=== PATIENT | male | born 1995 | race Caucasian/White ===

== ENCOUNTER 2016-10-29 08:50 | Day surgery (SDC) | payer BC ==
[~2016-10-29 08:50] MED LIST: ACETAMINOPHEN 500 MG TABLET PO PRN; HYDROmorphone HCL 2 MG/ML VIAL IV PRN; MAG HYDROX/ALUMINUM HYD/SIMETH 30 ML UDC PO PRN; MAGNESIUM HYDROXIDE 30 ML UDC PO PRN; ONDANSETRON HCL/PF 2 MG/ML VIAL IV PRN; PROMETHAZINE HCL 25 MG in DEXTROSE 5 % IN WATER 50 ML IV PRN; RINGERS SOLUTION,LACTATED 1,000 ML IV PRN; ZOLPIDEM TARTRATE 5 MG TABLET PO PRN; ceFAZolin SODIUM 1 GM VIAL IV PRN; oxyCODONE HCL/ACETAMINOPHEN 1 TAB TABLET PO PRN
--- OUTSIDE RECORDS SUMMARY | 2016-10-29 08:53 | XMS REPORT | Continuity of Care Document ---
:1995 Author Organization [facility] ([facility]) Address [address] [place] [address] Phone [phone] Care Team Providers Name Role Phone Kg Hester Primary Care Provider [phone] Source Comments This disclosure is being made pursuant to the Care Everywhere program, applicable federal and state laws, and may not contain all informaitonavailable regarding this patient.[facility] ([facility]) Active Allergies and Adverse Reactions Allergen Noted Date Severity Reactions Comments Methylprednisolone 04/24/2014 OTHER Severe muscle aches Current Medications Prescription Sig. Disp. Refills Start Date End Date Status ibuprofen 200 mg tablet Take 400 mg by mouth Active every 6 hours as needed. Active Problems Problem Noted Date Tear of right glenoid labrum 06/17/2015 Most Recent Encounters Date Type Specialty Providers Description 10/27/2016 Telephone Orthopedics Lulu Vyas MD Chief Comp: Shoulder Pain Social History Tobacco Use Types Packs/Day Years Used Date Never Smoker Smokeless Tobacco: Never Used Alcohol Use Drinks/Week oz/Week Comments No Last Filed Vital Signs Vital Sign Reading Time Taken Blood Pressure 139/71 07/20/2016 12:48 PM CDT Pulse 54 07/20/2016 12:48 PM CDT Temperature 36.5 C (97.7 F) 07/20/2016 12:48 PM CDT Respiratory Rate 20 07/20/2016 12:48 PM CDT Height 1.778 m (5' 10") 07/20/2016 12:48 PM CDT Weight 111.75 kg (246 lb 5.8 oz) 07/20/2016 12:48 PM CDT Body Mass Index 35.35 07/20/2016 12:48 PM CDT Oxygen Saturation 96% 11/29/2014 1:57 PM CDT Plan of Care Health Maintenance Due Date Last Done Comments Hepatitis B Vaccine (1 of 3 - Primary Series) 1995 HPV Vaccine (1 of 3 - Male 3 Dose Series) 2004 Tdap Vaccine 2004 MMR Vaccine 12/19/2011 Td Vaccine 12/19/2011 Varicella Vaccine (1 of 2 - Adult - No Evidence of 12/19/2011 Immunity) Influenza Vaccine: Seasonal (#1) 04/19/2016 Lipid Disorder Screening 07/20/2021 07/20/2016 Results from Last 3 Months Not on file
--- OUTSIDE RECORDS SUMMARY | 2016-10-29 08:53 | XMS REPORT | CCD ---
:1995 Author Name DIONISIO CROWE Address [address] [facility] Unavailable [place], [place] [phone] Care Team Providers Name Role Phone MIMI COULTER Attending Physician Unavailable Vital Signs Unknown or Not Available. Allergies Unknown or Not Available. Procedures Unknown or Not Available. History of Immunizations Unknown or Not Available. Problems Unknown or Not Available. Results COMPREHENSIVE METABOLIC PANEL - Collect Date/Time: 04/13/2016 16:08 Test Name Code Test Result Test Units Test Ref Range GLUCOSE 86 mg/dL L=74 H=106 SODIUM 141 mmol/L L=136 H=145 POTASSIUM 4.8 mmol/L L=3.5 H=5.1 CHLORIDE 103 mmol/L L=98 H=107 CO2 27 mmol/L L=21 H=32 BUN 10.0 mg/dL L=7.0 H=18.0 CREATININE 1.0 mg/dL L=0.8 H=1.3 BUN/CREAT 10.0 L=7.6 H=21.2 CALCIUM 9.1 mg/dL L=8.6 H=10.1 TOTAL BILI 2.4 mg/dL L=0.2 H=1.0 TOTAL PROTEIN 7.2 g/dL L=6.4 H=8.2 ALBUMIN 4.2 g/dL L=3.4 H=5.0 A/G RATIO 1.4 ALKALINE PHOS 67 IU/L L=50 H=136 AST/SGOT 33 IU/L L=15 H=37 ALT/SGPT 66 IU/L L=12 H=78 ANION GAP 15.8 mmol/L L=7.0 H=16.0 AGE 20 YEARS GFR 99.31 ml/min CPK, TOTAL - Collect Date/Time: 04/13/2016 16:08 Test Name Code Test Result Test Units Test Ref Range CPK 268 U/L L=39 H=308 CBC W/DIFF - Collect Date/Time: 04/13/2016 16:08 Test Name Code Test Result Test Units Test Ref Range WBC 6690-2 11.7 K/uL L=3.2 H=10.0 RBC 789-8 5.99 M/uL L=4.30 H=5.70 HEMOGLOBIN 718-7 17.5 g/dL L=13.6 H=17.1 HEMATOCRIT 49.0 % L=40.0 H=52.0 MCV 81.8 fL L=81.0 H=101 MCH 29.2 PG L=26.0 H=38.0 MCHC 35.7 G/DL L=31.0 H=37.0 RDW-SD 37.6 FL L=37.0 H=54.0 RDW-CV 12.7 % L=11.0 H=16.0 PLATELETS 777-3 168 K/UL L=140 H=380 MPV 12.3 FL L=9.0 H=13.0 %GRAN 60.7 % L=0.0 H=75.0 %LYMPH 23.3 % L=0.0 H=50.0 %MONO 14.4 % L=0.0 H=14.0 %EOS 1.4 % L=0.0 H=6.0 %BASO 0.2 % L=0.0 H=1.0 #GRAN 7.08 K/UL L=1.80 H=7.80 #LYMPH 2.71 K/UL L=0.30 H=4.00 #MONO 1.68 K/UL L=0.00 H=0.70 #EOS 0.16 K/UL L=0.00 H=0.40 #BASO 0.02 K/UL L=0.00 H=0.10 SLIDE REVIEWED? NOT INDICATED N/A MANUAL DIFF NOT INDICATED N/A MONO TEST - Collect Date/Time: 04/13/2016 16:08 Test Name Code Test Result Test Units Test Ref Range MONO TEST POSITIVE N/A NORMAL:NEGATIVE Active Medications Unknown or Not Available. Medications Administered During Visit Unknown or Not Available. Encounters Encounter Diagnosis Diagnosis Code Start Date Acute pharyngitis [id number] 04/13/2016 Social History Smoking Status Code Start Date End Date Never smoker [id number] Patient Decision Aids Unknown or Not Available. Discharge Instructions You were admitted to [facility] on 04/13/2016 15:23 with a principal diagnosis of Acute pharyngitis, unspecified You had the following tests done:CBC W/DIFFCOMPREHENSIVE METABOLIC PANELCPK, TOTALMONO TEST You were discharged from [facility] on 04/13/2016 15:23 Should you have any questions prior to discharge, please contact a member of your healthcare team. If you have left the hospital and have any questions, please contact your primary care physician. Chief Complaint and Reason For Visit Unknown or Not Available. Function Status Unknown or Not Available. Plan of Care Diagnostic Test Pending Plan of Care Pending Diagnostic Test CULTURE ANTIGEN BACKUP, [LOINC: 585-0], 04/13/2016 WILD TEST 1, [LOINC: 06466-4], 04/13/2016 CMV IGM AB, [LOINC: 7853-5], 04/13/2016 MICHAEL MATHUR VIRUS IGM, [LOINC: 7885-7], 04/13/2016 Referral/Transition of Care Unknown or Not Available.
--- OUTSIDE RECORDS SUMMARY | 2016-10-29 08:54 | XMS REPORT | CCD ---
:1995 Author Name DIONISIO CROWE Address [address] [facility] Unavailable [place], [place] [phone] Care Team Providers Name Role Phone KAYLYN RODRIGUEZ Attending Physician Unavailable Vital Signs Unknown or Not Available. Allergies Unknown or Not Available. Procedures Procedure Code Procedure Type Date CHEST [id number] 08/07/2015 History of Immunizations Unknown or Not Available. Problems Unknown or Not Available. Results CBC W/DIFF - Collect Date/Time: 08/07/2015 11:51 Test Name Code Test Result Test Units Test Ref Range WBC 6690-2 6.7 K/uL L=3.2 H=10.0 RBC 789-8 5.37 M/uL L=4.30 H=5.70 HEMOGLOBIN 718-7 15.4 g/dL L=13.6 H=17.1 HEMATOCRIT 46.0 % L=40.0 H=52.0 MCV 77.1 fL L=81.0 H=101 MCH 28.7 PG L=26.0 H=38.0 MCHC 33.5 G/DL L=31.0 H=37.0 RDW-SD 35.2 FL L=37.0 H=54.0 RDW-CV 12.6 % L=11.0 H=16.0 PLATELETS 111 K/UL L=140 H=380 MPV 11.2 FL L=9.0 H=13.0 %GRAN 16.8 % L=0.0 H=75.0 %LYMPH 59.8 % L=0.0 H=50.0 %MONO 18.5 % L=0.0 H=14.0 %EOS 0.6 % L=0.0 H=6.0 %BASO 4.3 % L=0.0 H=1.0 #GRAN 1.13 K/UL L=1.80 H=7.80 #LYMPH 4.02 K/UL L=0.30 H=4.00 #MONO 1.24 K/UL L=0.00 H=0.70 #EOS 0.04 K/UL L=0.00 H=0.40 #BASO 0.29 K/UL L=0.00 H=0.10 SLIDE REVIEWED? AGREE W/AUTO N/A MANUAL DIFF SLIDE REVIEWE N/A Active Medications Unknown or Not Available. Medications Administered During Visit Unknown or Not Available. Encounters Encounter Diagnosis Diagnosis Code Start Date Cough [id number] 08/07/2015 Social History Smoking Status Code Start Date End Date Never smoker [id number] Patient Decision Aids Unknown or Not Available. Discharge Instructions You were admitted to [facility] on 08/07/2015 with a principal diagnosis of Cough . You were discharged from [facility] on 08/07/2015. Should you have any questions prior to discharge, please contact a member of your healthcare team. If you have left the hospital and have any questions, please contact your primary care physician. Chief Complaint and Reason For Visit Unknown or Not Available. Function Status Unknown or Not Available. Plan of Care Unknown or Not Available. Referral/Transition of Care Unknown or Not Available.
--- OUTSIDE RECORDS SUMMARY | 2016-10-29 08:54 | XMS REPORT | CCD ---
:1995 Author Name DIONISIO CROWE Address [address] Unavailable [place], [place] [phone] Care Team Providers Name Role Phone MIMI COULTER Attending Physician Unavailable Vital Signs Unknown or Not Available. Allergies Unknown or Not Available. Procedures Procedure Code Procedure Type Date US ABDOMEN LIMITED [id number] SNOMED CT 07/13/2016 History of Immunizations Unknown or Not Available. Problems Unknown or Not Available. Results Unknown or Not Available. Active Medications Unknown or Not Available. Medications Administered During Visit Unknown or Not Available. Encounters Encounter Diagnosis Diagnosis Code Start Date Fatty (change of) liver, not elsewhere classified K760 07/13/2016 Social History Smoking Status Code Start Date End Date Never smoker [id number] Patient Decision Aids Unknown or Not Available. Discharge Instructions You were admitted to [facility] on 07/13/2016 08:20 with a principal diagnosis of Fatty (change of) liver, not elsewhere classified You were discharged from [facility] on 07/13/2016 08:20 Should you have any questions prior to [...]
--- OUTSIDE RECORDS SUMMARY | 2016-10-29 08:54 | XMS REPORT | CCD ---
:1995 Author Name DIONISIO CROWE Address [address] [facility] Unavailable [place], [place] [phone] Care Team Providers Name Role Phone MIMI COULTER Attending Physician Unavailable Vital Signs Unknown or Not Available. Allergies Unknown or Not Available. Procedures Procedure Code Procedure Type Date LIPID PANEL [id number] SNOMED CT 05/05/2016 History of Immunizations Unknown or Not Available. Problems Unknown or Not Available. Results HEPATIC FUNCTION PANEL - Collect Date/Time: 05/05/2016 11:35 Test Name Code Test Result Test Units Test Ref Range TOTAL BILI 1.8 mg/dL L=0.2 H=1.0 DIRECT BILI 0.2 mg/dL L=0.0 H=0.2 TOTAL PROTEIN 6.7 g/dL L=6.4 H=8.2 ALBUMIN 3.8 g/dL L=3.4 H=5.0 A/G RATIO 1.3 ALKALINE PHOS 52 IU/L L=50 H=136 AST/SGOT 23 IU/L L=15 H=37 ALT/SGPT 72 IU/L L=12 H=78 LIPID PANEL - Collect Date/Time: 05/05/2016 11:35 Test Name Code Test Result Test Units Test Ref Range CHOLESTEROL 2093-3 166 mg/dL L=0 H=200 TRIGLYCERIDES 2571-8 216 mg/dL L=0 H=200 HDL 2085-9 34 mg/dL L=40 H=60 LDL 2089-1 89 mg/dL L=0 H=160 CHOL/HDL 9830-1 4.9 L=0.0 H=6.7 CBC W/DIFF - Collect Date/Time: 05/05/2016 11:35 Test Name Code Test Result Test Units Test Ref Range WBC 6690-2 6.7 K/uL L=3.2 H=10.0 RBC 789-8 5.46 M/uL L=4.30 H=5.70 HEMOGLOBIN 718-7 15.6 g/dL L=13.6 H=17.1 HEMATOCRIT 43.0 % L=40.0 H=52.0 MCV 78.8 fL L=81.0 H=101 MCH 28.6 PG L=26.0 H=38.0 MCHC 36.3 G/DL L=31.0 H=37.0 RDW-SD 36.7 FL L=37.0 H=54.0 RDW-CV 13.0 % L=11.0 H=16.0 PLATELETS 777-3 183 K/UL L=140 H=380 MPV 11.3 FL L=9.0 H=13.0 %GRAN 51.5 % L=0.0 H=75.0 %LYMPH 38.2 % L=0.0 H=50.0 %MONO 8.5 % L=0.0 H=14.0 %EOS 1.5 % L=0.0 H=6.0 %BASO 0.3 % L=0.0 H=1.0 #GRAN 3.43 K/UL L=1.80 H=7.80 #LYMPH 2.55 K/UL L=0.30 H=4.00 #MONO 0.57 K/UL L=0.00 H=0.70 #EOS 0.10 K/UL L=0.00 H=0.40 #BASO 0.02 K/UL L=0.00 H=0.10 SLIDE REVIEWED? NOT INDICATED N/A MANUAL DIFF NOT INDICATED N/A Active Medications Unknown or Not Available. Medications Administered During Visit Unknown or Not Available. Encounters Encounter Diagnosis Diagnosis Code Start Date Stool finding [id number] 05/05/2016 Social History Smoking Status Code Start Date End Date Never smoker [id number] Patient Decision Aids Unknown or Not Available. Discharge Instructions You were admitted to [facility] on 05/05/2016 11:26 with a principal diagnosis of Other fecal abnormalities You had the following tests done:CBC W/DIFFHEPATIC FUNCTION PANELLIPID PANEL You were discharged from [facility] on 05/05/2016 11:26 Should you have any questions prior to [...]
--- OUTSIDE RECORDS SUMMARY | 2016-10-29 08:54 | XMS REPORT | CCD ---
:1995 Author Name DIONISIO CROWE Address [address] Unavailable [place], [place] [phone] Care Team Providers Name Role Phone MIMI [...] Encounters Encounter Diagnosis Diagnosis Code Start Date Diarrhea, unspecified R197 07/20/2016 Social History Smoking Status Code Start Date End Date Never smoker [id number] Patient Decision Aids Unknown or Not Available. Discharge Instructions You were admitted to [facility] on 07/20/2016 11:06 with a principal diagnosis of Diarrhea, unspecified You were discharged from [facility] on 07/20/2016 11:06 Should you have any questions prior to discharge, please contact a member of your healthcare team. If you have left the hospital and have any questions, please contact your primary care physician. Chief Complaint and Reason For Visit Unknown or Not Available. Function Status Unknown or Not Available. Plan of Care Diagnostic Test Pending Plan of Care Pending Diagnostic Test GIARDIA AND CRYPTPSPORIDIUM ANTIGEN, [LOINC: 6412-1], 07/20/2016 CLOSTRIDIUM DIFF AG MOLECULAR, [LOINC: 10962-5], 07/20/2016 CULTURE STOOL INC MABEL & SHIG, [LOINC: 634-6], 07/20/2016 OVA & PARASITES, STOOL, [LOINC: 673-4], 07/20/2016 Referral/Transition of Care Unknown or Not Available.
--- OUTSIDE RECORDS SUMMARY | 2016-10-29 08:54 | XMS REPORT | CCD ---
:1995 Author Name DIONISIO CROWE Address [address] [facility] Unavailable [place], [place] [phone] Care Team Providers Name Role Phone JAMES VALENZUELA Attending Physician Unavailable Vital Signs Unknown or Not Available. Allergies Unknown or Not Available. Procedures Procedure Code Procedure Type Date HIV 09/[id number] 08/28/2015 History of Immunizations Unknown or Not Available. Problems Unknown or Not Available. Results COMPREHENSIVE METABOLIC PANEL - Collect Date/Time: 08/28/2015 08:37 Test Name Code Test Result Test Units Test Ref Range GLUCOSE 92 mg/dL L=74 H=106 SODIUM 143 mmol/L L=136 H=145 POTASSIUM 4.2 mmol/L L=3.5 H=5.1 CHLORIDE 106 mmol/L L=98 H=107 CO2 27 mmol/L L=21 H=32 BUN 14.0 mg/dL L=7.0 H=18.0 CREATININE 1.1 mg/dL L=0.8 H=1.3 BUN/CREAT 12.7 L=7.6 H=21.2 CALCIUM 8.8 mg/dL L=8.6 H=10.1 TOTAL BILI 1.5 mg/dL L=0.2 H=1.0 TOTAL PROTEIN 7.4 g/dL L=6.4 H=8.2 ALBUMIN 4.0 g/dL L=3.4 H=5.0 A/G RATIO 1.2 ALKALINE PHOS 68 IU/L L=50 H=136 AST/SGOT 29 IU/L L=15 H=37 ALT/SGPT 86 IU/L L=12 H=78 ANION GAP 14.7 mmol/L L=7.0 H=16.0 AGE 19 YEARS GFR 89.81 ml/min CRP - Collect Date/Time: 08/28/2015 08:37 Test Name Code Test Result Test Units Test Ref Range CRP <0.2 mg/dL L=0.2 H=0.9 CBC W/DIFF - Collect Date/Time: 08/28/2015 08:37 Test Name Code Test Result Test Units Test Ref Range WBC 6690-2 6.3 K/uL L=3.2 H=10.0 RBC 789-8 5.31 M/uL L=4.30 H=5.70 HEMOGLOBIN 718-7 15.1 g/dL L=13.6 H=17.1 HEMATOCRIT 42.4 % L=40.0 H=52.0 MCV 79.8 fL L=81.0 H=101 MCH 28.4 PG L=26.0 H=38.0 MCHC 35.6 G/DL L=31.0 H=37.0 RDW-SD 37.0 FL L=37.0 H=54.0 RDW-CV 13.1 % L=11.0 H=16.0 PLATELETS 164 K/UL L=140 H=380 MPV 10.9 FL L=9.0 H=13.0 %GRAN 34.4 % L=0.0 H=75.0 %LYMPH 51.4 % L=0.0 H=50.0 %MONO 11.5 % L=0.0 H=14.0 %EOS 2.2 % L=0.0 H=6.0 %BASO 0.5 % L=0.0 H=1.0 #GRAN 2.16 K/UL L=1.80 H=7.80 #LYMPH 3.22 K/UL L=0.30 H=4.00 #MONO 0.72 K/UL L=0.00 H=0.70 #EOS 0.14 K/UL L=0.00 H=0.40 #BASO 0.03 K/UL L=0.00 H=0.10 SLIDE REVIEWED? NOT INDICATED N/A MANUAL DIFF NOT INDICATED N/A MONO TEST - Collect Date/Time: 08/28/2015 12:06 Test Name Code Test Result Test Units Test Ref Range MONO TEST POSITIVE N/A NORMAL:NEGATIVE HIV 1/2 AB - Collect Date/Time: 08/28/2015 08:37 Test Name Code Test Result Test Units Test Ref Range HIV AG/AB COMBO NON REACTIVE N/A Active Medications Unknown or Not Available. Medications Administered During Visit Unknown or Not Available. Encounters Encounter Diagnosis Diagnosis Code Start Date Acute pharyngitis [id number] 08/28/2015 Social History Smoking Status Code Start Date End Date Never smoker [id number] Patient Decision Aids Unknown or Not Available. Discharge Instructions You were admitted to [facility] on 08/28/2015 with a principal diagnosis of Acute pharyngitis . You had the following tests done:HIV AG/AB COMBO You were discharged from [facility] on 08/28/2015. Should you have any questions prior to [...]
[2016-10-29] MEDS ORDERED: RINGERS SOLUTION,LACTATED 1,000 ML IV ONE (09:42)
[2016-10-29 14:36] VITALS: BP 132/69
--- NOTE | 2016-10-29 14:59 | OR ---
Operative Report - Dictated Report Narrative: Date: 10/29/2016 Physician: Betito Jama M.D. Rehab Aid: Abdi Montague PA-C Preoperative diagnosis: Left Shoulder anterior labral tear, Postoperative diagnosis: Left Shoulder anterior labral tear, Procedure: Left shoulder arthroscopy with anterior labral repair Anesthesia: General plus regional Complications: None Estimated blood loss: Minimal Specimens: None Retained implants: Colon & Nephew 2.3 mm peek bio Raptor anchors 3 Drains: None Indications: Mr. Fiore Is a 20 year-old male who has been followed in my clinic with complaints of shoulder pain consistent with labral pain. Physical exam and diagnostic imaging were consistent with his complaints and concern for labral tear. Conservative measures have failed including, but not limited to, passage of time, activity modification, medications, physical therapy/home exercise program, or injections. The risks, benefits, and alternatives were discussed in clinic. The risks being , bleeding, infection, blood clots, nerve, tendon, ligament, blood vessel injury, persistent pain, arthrosis, stiffness, need for prolonged therapy, need for additional procedures, and persistent symptoms. Consent was obtained in the clinic. Procedure: After marking the correct extremity in the preoperative holding area, a timeout was performed in the operating room. IV antibiotics consisting of Ancef were administered prior to the procedure. A general followed by regional anesthetic was induced by the nurse sensor operator. This was in the supine position, then the patient was transitioned to a beachchair position with all bony prominences well-padded, head in neutral, the nonoperative arm well supported, and the legs padded with SCDs in place. The operative shoulder was then prepped and draped in a standard sterile fashion. Preoperatively the shoulder had full passive range of motion, and no gross instability. After marking out the bony landmarks , saline was infused into the joint through a posterior lateral portal site. A aries incision was made, and the blunt trocar and cannula was introduced into the shoulder joint. An accessory portal was placed in the rotator cuff interval using a spinal needle for guidance. Upon initial evaluation, the biceps tendon showed minimal tendinopathy but no tear. The middle glenohumeral ligament was intact. Subscapularis tendon was unremarkable. The glenoid showed no arthrosis or Bankart. The humeral head articular surface showed no arthrosis or Hill-Sachs. The anterior labrum was torn and elevated for approximately the 7:00 to 10:00 positions. The superior labrum was intact including the biceps anchor. The pouch was unremarkable. The posterior labrum was unremarkable. The supraspinatus tendon was intact and unremarkable. The infraspinatus tendon was unremarkable. Utilizing a second anterior inferior portal, the anterior labrum and anterior glenoid was debrided of its soft tissues. A round bur was utilized in order to repair the anterior glenoid rim for repair of the anterior labrum after elevating the anterior labral tissues off the anterior glenoid. 3 straight anchors were placed at approximately the 7 :30, 8:30, and 9:30 positions. A suture passing device was placed around the labrum and a small pinch of capsule in order to repair the anterior labrum and divided anterior bumper. After sequentially tying these from inferior to superiorly with the knots away from the joint, the labrum was probed and was noted be stable with return of the anterior labral tissue. There is no other pathology identified and the fluid was evacuated from the joint. Shoulders place a range of motion and show no lift off of the repaired tissues and full passive range of motion. The portal sites were closed with interrupted nylon. Dressings consisting of Xeroform, 4 x 4, ABD, soft roll, and tape were applied. All sponge, needle, blade, and instrument counts were correct prior to closing the wounds. The patient was awoken and transferred to the postanesthesia care unit in stable condition.
[2016-10-29] MEDS ORDERED: SENNOSIDES/DOCUSATE SODIUM 1 TAB TABLET PO SCH (21:00)
== END 2016-10-29 08:51 | disposition home or self-care (01) ==
LOC: AMB 08:50
PROVIDERS: ATTEND Orthopaedic Surgery
PROC: 0MM24ZZ Reattachment of Left Shoulder Bursa and Ligament, Percutaneous Endoscopic Approach (ICD-10-PCS; principal; 2016-10-29 11:15)
DX: S43.492A Other sprain of left shoulder joint, initial encounter (principal); Z68.34 Body mass index [BMI] 34.0-34.9, adult